=== PATIENT | male | born 1955 | race African-American/Black ===

== ENCOUNTER 2016-08-02 10:50 | Inpatient (IN) | payer OTHER ==
[2016-08-02 11:23] VITALS: BMI 29.2
--- NOTE | 2016-08-02 14:45 | HP ---
CIWA Score - CIWA Score Nausea/Vomitin-Mild Nausea/No Vomiting Muscle Tremors: 4-Moderate,w/Arms Extend Anxiety: 3 Agitation: 4-Moderately Restless Paroxysmal Sweats: 3 Orientation: 0-Oriented Tacttile Disturbances: 0-None Auditory Disturbances: 0-None Visual Disturbances: 0-None Headache: 0-None Present CIWA-Ar Total Score: 15 Admission ROS S - HPI Chief Complaint: I am here to detox. Allergies/Adverse Reactions: Allergies Allergy/AdvReac Type Severity Reaction Status Date / Time peanut Allergy Severe Rash Verified 08/02/16 12:21 No Known Drug Allergies Allergy Verified 08/02/16 12:21 BEETS Allergy Severe Rash Uncoded 08/02/16 12:21 PEANUT BUTTER Allergy Uncoded 08/02/16 12:21 History of Present Illness: pt is a 61yr old male with a history of alcohol and cocaine dependence seeking detox for treatment. Exam Limitations: No Limitations - Ebola screening Have you traveled outside of the country in the last 21 days: No Have you had contact with anyone from an Ebola affected area: No Have you been sick,other than usual withdrawal symptoms: No Do you have a fever: No - Review of Systems Constitutional: Chills, Diaphoresis, Loss of Appetite, Unintentional Wgt. Loss EENT: reports: No Symptoms Reported Respiratory: reports: No Symptoms reported Cardiac: reports: No Symptoms Reported GI: reports: Poor Appetite, Poor Fluid Intake : reports: No Symptoms Reported Musculoskeletal: reports: Joint Pain (b/l knee) Integumentary: reports: Flushing, Sweating Neuro: reports: Tingling, Tremors Endocrine: reports: Excessive Sweating, Flushing, Intolerance to Cold, Intolerance to Heat Hematology: reports: No Symptoms Reported Psychiatric: reports: Judgement Intact, Mood/Affect Appropiate, Orientated x3, Agitated, Anxious, other Other Systems: Reviewed and Negative Patient History - Patient Medical History Hx Anemia: No Hx Asthma: No Hx Chronic Obstructive Pulmonary Disease (COPD): No Hx Cancer: No Hx Cardiac Disorders: No Hx Congestive Heart Failure: No Hx Hypertension: Yes (on meds.) Hx Hypercholesterolemia: No Hx Pacemaker: No HX Cerebrovascular Accident: No Hx Seizures: No Hx Dementia: No Hx Diabetes: No Hx Gastrointestinal Disorders: No Hx Liver Disease: No Hx Genitourinary Disorders: No Hx Sexually Transmitted Disorders: No Hx Renal Disease (ESRD): No Hx Thyroid Disease: No Hx Human Immunodeficiency Virus (HIV): No (denies) Hx Hepatitis C: No (denies) Hx Depression: Yes Hx Suicide Attempt: Yes (tried to walk in traffic 10 yrs ago; denies any S/H ideation) Hx Bipolar Disorder: No Hx Schizophrenia: No - Patient Surgical History Past Surgical History: Yes Hx Neurologic Surgery: No Hx Cataract Extraction: No Hx Cardiac Surgery: No Hx Lung Surgery: No Hx Breast Surgery: No Hx Breast Biopsy: No Hx Abdominal Surgery: No Hx Appendectomy: No Hx Cholecystectomy: No Hx Genitourinary Surgery: No Hx Section: No Hx Orthopedic Surgery: Yes (RIGHT ACHILLES TENDON REPAIR IN 1998) Anesthesia Reaction: No - PPD History Previous Implant?: Yes Documented Results: Negative w/proof Implanted On Prior [facility] Admission?: Yes Date: 10/01/15 Results: 0 mm PPD to be Administered?: No - Reproductive History Patient is a Female of Child Bearing Age (11 -55 yrs old): No - Smoking Cessation Smoking history: Never smoked Have you smoked in the past 12 months: No Hx Chewing Tobacco Use: No Initiated information on smoking cessation: No - Substance & Tx. History Hx Alcohol Use: Yes Hx Substance Use: Yes Substance Use Type: Alcohol, Cocaine Hx Substance Use Treatment: Yes - Substances Abused Alcohol Route: Oral Frequency: Daily Amount used: 1 liter rayo Age of first use: 18 Date of Last Use: 08/02/16 Cocaine Route: Smoking Frequency: Daily Amount used: 1 gram Age of first use: 30 Date of Last Use: 08/01/16 Family Disease History - Family Disease History Family Disease History: Other: Brother (DSA,COCAINE,) Admission Physical Exam BHS - Vital Signs Vital Signs: Vital Signs - 24 hr 08/02/16 11:21 Temperature 97.2 F L Pulse Rate 80 Respiratory 18 Rate Blood Pressure 163/80 - Physical General Appearance: Yes: Appropriately Dressed, Moderate Distress, Tremorous, Irritable, Sweating, Anxious HEENTM: Yes: Normal Voice Respiratory: Yes: Lungs Clear, Normal Breath Sounds, No Respiratory Distress Breast: Yes: Within Normal Limits Cardiology: Yes: Regular Rhythm, Regular Rate, S1, S2 Abdominal: Yes: Normal Bowel Sounds, Non Tender, Soft Genitourinary: Yes: Within Normal Limits Back: Yes: Normal Inspection Musculoskeletal: Yes: full range of Motion Extremities: Yes: Normal Capillary Refill, Normal Inspection, Non-Tender, Tremors 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 NML intact, Fully Oriented, Alert, Normal Mood/ Affect, Normal Response Integumentary: Yes: Normal Color Lymphatic: Yes: Within Normal Limits - Diagnostic (1) Alcohol dependence with uncomplicated withdrawal Current Visit: Yes Status: Chronic (2) Cocaine dependence Current Visit: Yes Status: Chronic Qualifiers: Substance use status: uncomplicated Qualified Code(s): F14.20 - Cocaine dependence, uncomplicated (3) Essential hypertension Current Visit: Yes Status: Chronic Cleared for Admission [facility] - Detox or Rehab [facility] Level of Care: Medically Managed Detox Regimen/Protocol: Librium [facility] Breath Alcohol Content Breath Alcohol Content: 0.037 Urine Drug Screen - Results Drug Screen Negative: No Urine Drug Screen Results: MEGHAN-Cocaine
[2016-08-02] MEDS ORDERED: diphenhydrAMINE HCL 50 MG CAPSULE PO PRN (14:46)
[2016-08-02] MEDS ORDERED: MAGNESIUM CITRATE 300 ML BOTTLE PO PRN (14:46)
[2016-08-02] MEDS ORDERED: chlordiazePOXIDE HCL 25 MG CAPSULE PO PRN (14:46)
[2016-08-02] MEDS ORDERED: hydrOXYzine PAMOATE 50 MG CAPSULE (FP) PO PRN (14:46)
[2016-08-02] MEDS ORDERED: MAG HYDROX/AL HYDROX/SIMETH 30 ML UNIT-DOSE CUP PO PRN (14:46)
[2016-08-02] MEDS ORDERED: MENTHOL/PHENOL 1 EACH UD MM PRN (14:46)
[2016-08-02] MEDS ORDERED: ACETAMINOPHEN 325 MG TABLET (FP) PO PRN (14:46)
[2016-08-02] MEDS ORDERED: IBUPROFEN 400 MG TABLET (FP) PO PRN (14:46)
[2016-08-02] MEDS ORDERED: LOPERAMIDE HCL 2 MG CAPSULE PO PRN (14:46)
[2016-08-02] MEDS ORDERED: MAGNESIUM HYDROX 2400MG/30ML ORAL SUSPENSION 30 ML CUP PO PRN (14:46)
[2016-08-02] MEDS ORDERED: P-EPHED 60MG/TRIPROLIDI 2.5MG TABLET PO PRN (14:46)
[2016-08-02] MEDS ORDERED: guaiFENesin/D-METHORPHAN HB 10 ML UNIT-DOSE CUPS PO PRN (14:46)
[2016-08-02] MEDS ORDERED: chlordiazePOXIDE HCL 25 MG CAPSULE PO ONE (14:58)
[2016-08-02] MEDS: chlordiazePOXIDE HCL 25 MG CAPSULE PO SCH ×2 (20:10→22:26)
[2016-08-02 20:35] LABS: URINE APPEARANCE CLEAR; URINE BILIRUBIN NEGATIVE (NEGATIVE); URINE BLOOD NEGATIVE (NEGATIVE); URINE COLOR YELLOW; URINE GLUCOSE (UA) NEGATIVE (NEGATIVE); URINE KETONE NEGATIVE (NEGATIVE); URINE LEUK ESTERASE NEGATIVE (NEGATIVE); URINE NITRITE NEGATIVE (NEGATIVE); URINE PROTEIN NEGATIVE (NEGATIVE); URINE UROBILINOGEN 2.0 E.U/dl E.U./dl (0.2-1.0)
[2016-08-02] MEDS: THIAMINE HCL 100 MG TABLET (FP) PO SCH (22:26)
[2016-08-03] MEDS: chlordiazePOXIDE HCL 25 MG CAPSULE PO SCH ×4 (06:17→22:11)
--- NOTE | 2016-08-03 08:04 | CONSULT ---
[facility] Psychiatric Consult - Data Date of interview: 08/03/16 Admission source: [facility] Identifying data: This is 61 years old male with history of Depression, history of psychiatric hospitalization,k iontyoxicated with: Alcohol and Cocaine Substance Abuse History: - Smoking Cessation. Smoking history: Never smoked. Have you smoked in the past 12 months: No. Hx Chewing Tobacco Use: No. Initiated information on smoking cessation: No. - Substance & Tx. History. Hx Alcohol Use: Yes. Hx Substance Use: Yes. Substance Use Type: Alcohol, Cocaine. Hx Substance Use Treatment: Yes. - Substances Abused. Alcohol. Route: Oral. Frequency: Daily. Amount used: 1 liter rayo. Age of first use : 18. Date of Last Use: 08/02/16. Cocaine. Route: Smoking. Frequency: Daily. Amount used: 1 gram. Age of first use: 30. Date of Last Use: 08/01/16 Medical History: HTN Psychiatric History: Patient reports history of depression with most recent psychoiatric admsision on about 5-10 years ago, reports taking prior to admission: Celexa 20mg poqd Physical/Sexual Abuse/Trauma History: Denies Additional Comment: Celexa 20mg poqd Mental Status Exam - Mental Status Exam Alert and Oriented to: Person Cognitive Function: Fair Patient Appearance: Well Groomed Mood: Apprehensive Affect: Appropriate Patient Behavior: Cooperative Speech Pattern: Appropriate Voice Loudness: Normal Thought Process: Goal Oriented Thought Disorder: Being Controlled Hallucinations: Denies Suicidal Ideation: Denies Homicidal Ideation: Denies Insight/Judgement: Fair Sleep: Difficulty falling asleep Appetite: Weight gain Muscle strength/Tone: Normal Gait/Station: Shuffling Additional Comments: Celexa 20mg poqd Psychiatric Findings - Problem List ([place] 1, 2,3) (1) Alcohol dependence with uncomplicated withdrawal Current Visit: Yes Status: Chronic (2) Cocaine dependence Current Visit: Yes Status: Chronic Qualifiers: Substance use status: uncomplicated Qualified Code(s): F14.20 - Cocaine dependence, uncomplicated (3) Drug-induced mood disorder Current Visit: Yes Status: Acute - Initial Treatment Plan Initial Treatment Plan: Celexa 20mg poqd
[2016-08-03 10:07] LABS: MCH 29.4 pg (25.7-33.7); MCHC 32.9 g/dl (32.0-35.9); MEAN CELL VOLUME 89.4 fl (80-96); PLATELET COUNT 171 K/MM3 (134-434); RDW 14.1 % (11.9-15.9); WHITE BLOOD COUNT 5.8 K/mm3 (4.0-10.0)
[2016-08-03] MEDS: PRENATAL VITAMINS W/ FOLIC ACID TABLET (FP) PO SCH (10:21)
[2016-08-03] MEDS: CITALOPRAM HYDROBROMIDE 20 MG TABLET (FP) PO SCH (10:22)
[2016-08-03 10:42] LABS: ALBUMIN 3.8 g/dl (3.4-5.0); ALK PHOS 65 U/L (45-117); ANION GAP 14 (8-16); BILIRUBIN,TOTAL 0.6 mg/dL (0.2-1.0); CALCIUM 9.7 mg/dL (8.5-10.1); CO2 23 mmol/L (21-32); CREATININE 1.1 mg/dL (0.7-1.3); GLUCOSE,RANDOM 144 mg/dL (74-106); SGOT/AST 13 U/L (15-37); SGPT/ALT 19 U/L (12-78); TOT PROT 6.9 g/dl (6.4-8.2)
--- NOTE | 2016-08-03 11:05 | PN ---
[facility] CIWA - CIWA Score Nausea/Vomitin-No Nausea/No Vomiting Muscle Tremors: 4-Moderate,w/Arms Extend Anxiety: 3 Agitation: 1-Slight > Activity Paroxysmal Sweats: 3 Orientation: 0-Oriented Tacttile Disturbances: 2-Mild Itch/Numbness/Burn Auditory Disturbances: 0-None Visual Disturbances: 1-Very Mild Sensitivity Headache: 3-Moderate CIWA-Ar Total Score: 17 BHS Progress Note (SOAP) Subjective: Sweating, Tremors, Headache, Body Aches. Objective: Pt. A & O X, Observed Ambulating on unit. 08/03/16 11:03 Vital Signs Temperature 97.7 F 08/03/16 09:35 Pulse Rate 78 08/03/16 09:35 Respiratory Rate 18 08/03/16 09:35 Blood Pressure 132/80 08/03/16 09:35 O2 Sat by Pulse Oximetry (%) Laboratory Last Values WBC 5.8 K/mm3 (4.0-10.0) 08/03/16 06:00 RBC 4.61 M/mm3 (4.00-5.60) 08/03/16 06:00 Hgb 13.5 GM/dL (11.7-16.9) 08/03/16 06:00 Hct 41.2 % (35.4-49) 08/03/16 06:00 MCV 89.4 fl (80-96) 08/03/16 06:00 MCHC 32.9 g/dl (32.0-35.9) 08/03/16 06:00 RDW 14.1 % (11.9-15.9) 08/03/16 06:00 Plt Count 171 K/MM3 (134-434) 08/03/16 06:00 MPV 9.0 fl (7.5-11.1) 08/03/16 06:00 Sodium 143 mmol/L (136-145) 08/03/16 06:00 Potassium 3.9 mmol/L (3.5-5.1) 08/03/16 06:00 Chloride 106 mmol/L (98-107) 08/03/16 06:00 Carbon Dioxide 23 mmol/L (21-32) 08/03/16 06:00 Anion Gap 14 (8-16) 08/03/16 06:00 BUN 17 mg/dL (7-18) D 08/03/16 06:00 Creatinine 1.1 mg/dL (0.7-1.3) D 08/03/16 06:00 Creat Clearance w eGFR > 60 (>60) 08/03/16 06:00 Random Glucose 144 mg/dL (74-106) H D 08/03/16 06:00 Calcium 9.7 mg/dL (8.5-10.1) 08/03/16 06:00 Total Bilirubin 0.6 mg/dL (0.2-1.0) D 08/03/16 06:00 AST 13 U/L (15-37) L 08/03/16 06:00 ALT 19 U/L (12-78) 08/03/16 06:00 Alkaline Phosphatase 65 U/L (45-117) D 08/03/16 06:00 Total Protein 6.9 g/dl (6.4-8.2) 08/03/16 06:00 Albumin 3.8 g/dl (3.4-5.0) 08/03/16 06:00 Urine Color Yellow 08/02/16 14:00 Urine Appearance Clear 08/02/16 14:00 Urine pH 5.0 (5.0-8.0) 08/02/16 14:00 Ur Specific [place] 1.032 (1.001-1.035) 08/02/16 14:00 Urine Protein Negative (NEGATIVE) 08/02/16 14:00 Urine Glucose (UA) Negative (NEGATIVE) 08/02/16 14:00 Urine Ketones Negative (NEGATIVE) 08/02/16 14:00 Urine Blood Negative (NEGATIVE) 08/02/16 14:00 Urine Nitrite Negative (NEGATIVE) 08/02/16 14:00 Urine Bilirubin Negative (NEGATIVE) 08/02/16 14:00 Urine Urobilinogen 2.0 e.u/dl E.U./dl (0.2-1.0) 08/02/16 14:00 Ur Leukocyte Esterase Negative (NEGATIVE) 08/02/16 14:00 LABS NOTED. Assessment: 08/03/16 11:05 WITHDRAWAL SYMPTOMS. Plan: CONTINUE DETOX. FASTING BGM TOMORROW [facility] FOR ELEVATED ADMISSION GLUCOSE LEVEL.
[2016-08-03] MEDS: TOLNAFTATE 1% CREAM 15 GM TUBE TP SCH ×2 (15:34→22:11)
--- NOTE | 2016-08-03 17:38 | EKG ---
Test Reason : Blood Pressure : / mmHG Vent. Rate : 073 BPM Atrial Rate : 073 BPM P-R Int : 140 ms QRS Dur : 092 ms QT Int : 402 ms P-R-T Axes : 052 036 061 degrees QTc Int : 442 ms NORMAL SINUS RHYTHM NORMAL ECG NO PREVIOUS ECGS AVAILABLE Confirmed by RADHA GUERRA, ANDREA ([id number]) on 08/03/2016 5:38:12 PM Referred By: Marcin Weathers Confirmed By:ANDREA GARCIA MD
[2016-08-03] MEDS: THIAMINE HCL 100 MG TABLET (FP) PO SCH (22:11)
[2016-08-04] MEDS: chlordiazePOXIDE HCL 25 MG CAPSULE PO SCH ×2 (05:38→10:34)
--- NOTE | 2016-08-04 09:41 | PN ---
S CIWA - CIWA Score Nausea/Vomitin Muscle Tremors: 3 Anxiety: 2 Agitation: 2 Paroxysmal Sweats: 2 Orientation: 0-Oriented Tacttile Disturbances: 1-Very Mild Itch/Numbness Auditory Disturbances: 1-Very Mild Visual Disturbances: 1-Very Mild Sensitivity Headache: 2-Mild CIWA-Ar Total Score: 17 BHS Progress Note (SOAP) Objective: 08/04/16 09:41 Laboratory Tests 08/02/16 08/03/16 08/03/16 14:00 06:00 06:00 WBC 5.8 RBC 4.61 Hgb 13.5 Hct 41.2 MCV 89.4 MCHC 32.9 RDW 14.1 Plt Count 171 MPV 9.0 Sodium 143 Potassium 3.9 Chloride 106 Carbon Dioxide 23 Anion Gap 14 BUN 17 D Creatinine 1.1 D Creat Clearance w eGFR > 60 Random Glucose 144 H D Calcium 9.7 Total Bilirubin 0.6 D AST 13 L ALT 19 Alkaline Phosphatase 65 D Total Protein 6.9 Albumin 3.8 Urine Color Yellow Urine Appearance Clear Urine pH 5.0 Ur Specific [place] 1.032 Urine Protein Negative Urine Glucose (UA) Negative Urine Ketones Negative Urine Blood Negative Urine Nitrite Negative Urine Bilirubin Negative Urine Urobilinogen 2.0 e.u/dl Ur Leukocyte Esterase Negative RPR Titer 08/03/16 06:00 WBC RBC Hgb Hct MCV MCHC RDW Plt Count MPV Sodium Potassium Chloride Carbon Dioxide Anion Gap BUN Creatinine Creat Clearance w eGFR Random Glucose Calcium Total Bilirubin AST ALT Alkaline Phosphatase Total Protein Albumin Urine Color Urine Appearance Urine pH Ur Specific [place] Urine Protein Urine Glucose (UA) Urine Ketones Urine Blood Urine Nitrite Urine Bilirubin Urine Urobilinogen Ur Leukocyte Esterase RPR Titer Nonreactive Vital Signs - 24 hr 08/03/16 08/03/16 08/03/16 14:57 20:22 21:56 Temperature 98.1 F 97.9 F Pulse Rate 73 62 84 Respiratory 18 16 20 Rate Blood Pressure 135/88 137/83 120/82 08/04/16 08/04/16 08/04/16 00:30 03:30 06:00 Temperature 96.8 F L Pulse Rate 65 Respiratory 18 18 18 Rate Blood Pressure 132/70 Assessment: 08/04/16 09:41 ongoing withdrawal Plan: continue detox protocol
[2016-08-04] MEDS: PRENATAL VITAMINS W/ FOLIC ACID TABLET (FP) PO SCH (10:34)
[2016-08-04] MEDS: CITALOPRAM HYDROBROMIDE 20 MG TABLET (FP) PO SCH (10:34)
[2016-08-04] MEDS: TOLNAFTATE 1% CREAM 15 GM TUBE TP SCH ×2 (10:35→22:13)
[2016-08-04] MEDS: chlordiazePOXIDE 5 MG CAPSULE PO SCH ×2 (17:38→22:14)
[2016-08-04] MEDS: THIAMINE HCL 100 MG TABLET (FP) PO SCH (22:13)
[2016-08-05] MEDS: chlordiazePOXIDE 5 MG CAPSULE PO SCH ×2 (07:52→11:22)
[2016-08-05] MEDS: TOLNAFTATE 1% CREAM 15 GM TUBE TP SCH (11:22)
[2016-08-05] MEDS: PRENATAL VITAMINS W/ FOLIC ACID TABLET (FP) PO SCH (11:22)
[2016-08-05] MEDS: CITALOPRAM HYDROBROMIDE 20 MG TABLET (FP) PO SCH (11:22)
--- NOTE | 2016-08-05 12:59 | PN ---
BHS Progress Note (SOAP) Subjective: ALERT,IRRITABLE,ANXIOUS,INTERRUPTED SLEEP,PAIN IN THE BODY Objective: 08/05/16 12:58 Vital Signs Temperature 97.7 F 08/05/16 10:04 Pulse Rate 68 08/05/16 10:04 Respiratory Rate 18 08/05/16 10:04 Blood Pressure 118/85 08/05/16 10:04 O2 Sat by Pulse Oximetry (%) Assessment: 08/05/16 12:59 WITHDRAWAL SYMPTOM Plan: CONTINUE DETOX
[2016-08-05] MEDS: chlordiazePOXIDE HCL 10 MG CAPSULE PO SCH ×2 (18:25→22:08)
[2016-08-05] MEDS: THIAMINE HCL 100 MG TABLET (FP) PO SCH (22:08)
[2016-08-06] MEDS: chlordiazePOXIDE HCL 10 MG CAPSULE PO SCH ×2 (06:33→10:12)
[2016-08-06] MEDS: CITALOPRAM HYDROBROMIDE 20 MG TABLET (FP) PO SCH (10:12)
[2016-08-06] MEDS: PRENATAL VITAMINS W/ FOLIC ACID TABLET (FP) PO SCH (10:12)
[2016-08-06] MEDS: TOLNAFTATE 1% CREAM 15 GM TUBE TP SCH (10:15)
--- NOTE | 2016-08-06 11:53 | PN ---
S Progress Note (SOAP) Subjective: ALERT,IRRITABLE,INTERRUPTED SLEEP Objective: 08/06/16 11:52 Vital Signs Temperature 98.1 F 08/06/16 11:01 Pulse Rate 73 08/06/16 11:01 Respiratory Rate 16 08/06/16 11:01 Blood Pressure 140/85 08/06/16 11:01 O2 Sat by Pulse Oximetry (%) Assessment: 08/06/16 11:52 WITHDRAWAL SYMPTOM Plan: CONTINUE DETOX,DISCHARGE IN AM
[2016-08-06] MEDS: THIAMINE HCL 100 MG TABLET (FP) PO SCH (22:25)
--- NOTE | 2016-08-07 08:47 | DS ---
[facility] Detox Discharge Summary Admission Date: 08/02/16 Discharge Date: 08/07/16 - History Present History: Alcohol Dependence, Cocaine Dependence - Physical Exam Results Vital Signs: Vital Signs Temperature 97.3 F L 08/07/16 06:00 Pulse Rate 66 08/07/16 06:00 Respiratory Rate 20 08/07/16 06:00 Blood Pressure 116/75 08/07/16 06:00 O2 Sat by Pulse Oximetry (%) - Treatment Hospital Course: Detox Protocol Followed, Detoxed Safely, Responded well, Discharged Condition Good, Rehab Referral Accepted - Medication Discharge Medications: Ambulatory Orders Lisinopril [Prinivil -] 40 mg PO DAILY #30 tablet 04/04/16 Citalopram Hydrobromide [Celexa -] 20 mg PO DAILY 08/02/16 Citalopram Hydrobromide [Celexa -] 20 mg PO DAILY #30 tablet 08/03/16 - Diagnosis (1) Alcohol dependence with uncomplicated withdrawal Current Visit: Yes Status: Chronic (2) Cocaine dependence Current Visit: Yes Status: Chronic Qualifiers: Substance use status: uncomplicated Qualified Code(s): F14.20 - Cocaine dependence, uncomplicated (3) Essential hypertension Current Visit: Yes Status: Chronic - AMA Did Patient Leave Against Medical Advice: No
[2016-08-07] MEDS: CITALOPRAM HYDROBROMIDE 20 MG TABLET (FP) PO SCH (10:03)
[2016-08-07] MEDS: PRENATAL VITAMINS W/ FOLIC ACID TABLET (FP) PO SCH (10:03)
[2016-08-07] MEDS: TOLNAFTATE 1% CREAM 15 GM TUBE TP SCH (10:03)
[2016-08-07 10:17] VITALS: BP 134/92; PULSE 67; TEMP 96.3
== END 2016-08-07 10:19 | disposition home or self-care (01) | DRG 751 ==
LOC: YASAS 10:50 → Y6N 13:18
PROVIDERS: ADMIT Internal Medicine Addiction Medicine; ATTEND Internal Medicine Addiction Medicine
PROC: HZ2ZZZZ Detoxification Services for Substance Abuse Treatment (ICD-10-PCS; principal; 2016-08-07)
DX: F10.230 Alcohol dependence with withdrawal, uncomplicated (principal); F14.20 Cocaine dependence, uncomplicated; F19.24 Other psychoactive substance dependence with psychoactive substance-induced mood disorder; I10 Essential (primary) hypertension
CPT/HCPCS: 36415; 80053; 81003; 85027; 86593; 93005; 93010

== ENCOUNTER 2020-07-25 16:47 | Inpatient (IN) | payer OTHER ==
[2020-07-25] MEDS ORDERED: BISMUTH SUBSALICYLATE 524 MG/30 ML UD PO PRN (17:38)
[2020-07-25] MEDS ORDERED: MAGNESIUM HYDROX 2400MG/30ML ORAL SUSPENSION 30 ML CUP PO PRN (17:38)
[2020-07-25] MEDS ORDERED: MENTHOL/PHENOL 1 EACH UD MM PRN (17:38)
[2020-07-25] MEDS ORDERED: METHOCARBAMOL 500 MG TABLET PO PRN (17:38)
[2020-07-25] MEDS ORDERED: ONDANSETRON *ODT* 4 MG TABLET SL PRN (17:38)
[2020-07-25] MEDS ORDERED: chlordiazePOXIDE HCL 25 MG CAPSULE PO PRN (17:38)
[2020-07-25] MEDS ORDERED: IBUPROFEN 400 MG TABLET (FP) PO PRN (17:38)
[2020-07-25] MEDS ORDERED: MAG HYDROX/AL HYDROX/SIMETH 30 ML UNIT-DOSE CUP PO PRN (17:38)
[2020-07-25] MEDS ORDERED: ACETAMINOPHEN 325 MG TABLET (FP) PO PRN ×2 (17:38)
[2020-07-25] MEDS ORDERED: MAGNESIUM CITRATE 300 ML BOTTLE PO PRN (17:38)
[2020-07-25 18:07] VITALS: BMI 33.0
[2020-07-25] MEDS: hydrOXYzine PAMOATE 25 MG CAPSULE (FP) PO SCH ×2 (18:53→22:17)
[2020-07-25] MEDS: MELATONIN 5 MG TABLETS PO SCH (22:17)
[2020-07-25] MEDS: THIAMINE HCL 100 MG TABLET (FP) PO SCH (22:17)
[2020-07-25] MEDS: chlordiazePOXIDE HCL 25 MG CAPSULE PO SCH (22:18)
[2020-07-26] MEDS: hydrOXYzine PAMOATE 25 MG CAPSULE (FP) PO SCH ×5 (06:32→22:08)
[2020-07-26] MEDS: chlordiazePOXIDE HCL 25 MG CAPSULE PO SCH ×4 (06:32→22:08)
[2020-07-26] MEDS ORDERED: PATIENT'S OWN MEDICATION (NON-FORMULARY) (Lisinopril [Prinivil -] 40 MG Tablet) PO SCH (10:00)
[2020-07-26] MEDS: PRENATAL VITAMINS W/ FOLIC ACID TABLET (FP) PO SCH (10:13)
[2020-07-26] MEDS: LISINOPRIL 20 MG TABLET PO SCH (10:13)
[2020-07-26] MEDS: CITALOPRAM HYDROBROMIDE 20 MG TABLET PO SCH (10:48)
[2020-07-26 12:10] LABS: POTASSIUM 4.3 mmol/L (3.5-5.1)
[2020-07-26 12:12] LABS: CALCIUM 8.4 mg/dL (8.5-10.1)
[2020-07-26 12:13] LABS: ALBUMIN 3.2 g/dl (3.4-5.0); BLOOD UREA NITROGEN 18.3 mg/dL (7-18)
[2020-07-26 12:16] LABS: CREATININE 0.9 mg/dL (0.55-1.3)
[2020-07-26 12:17] LABS: BILIRUBIN,TOTAL 0.2 mg/dL (0.2-1)
[2020-07-26 12:18] LABS: TOT PROT 6.3 g/dl (6.4-8.2)
[2020-07-26 12:31] LABS: HEMATOCRIT 40.9 % (35.4-49); HEMOGLOBIN 13.3 GM/dL (11.7-16.9); MCH 29.2 pg (25.7-33.7); MCHC 32.6 g/dl (32.0-35.9); MEAN CELL VOLUME 89.7 fl (80-96); MEAN PLT VOLUME 9.8 fl (7.5-11.1); PLATELET COUNT 149 K/MM3 (134-434); RBC 4.56 M/mm3 (4.00-5.60); RDW 14.3 % (11.9-15.9); WHITE BLOOD COUNT 5.2 K/mm3 (4.0-10.0)
[2020-07-26] MEDS: MELATONIN 5 MG TABLETS PO SCH (22:08)
[2020-07-26] MEDS: THIAMINE HCL 100 MG TABLET (FP) PO SCH (22:08)
[2020-07-27] MEDS: chlordiazePOXIDE HCL 25 MG CAPSULE PO SCH ×4 (05:52→22:12)
[2020-07-27] MEDS: hydrOXYzine PAMOATE 25 MG CAPSULE (FP) PO SCH ×3 (05:54→15:15)
[2020-07-27] MEDS: PRENATAL VITAMINS W/ FOLIC ACID TABLET (FP) PO SCH (10:19)
[2020-07-27] MEDS: CITALOPRAM HYDROBROMIDE 20 MG TABLET PO SCH (10:19)
[2020-07-27] MEDS: LISINOPRIL 20 MG TABLET PO SCH (10:21)
[2020-07-27 11:37] LABS: POTASSIUM 4.9 mmol/L (3.5-5.1)
[2020-07-27 11:40] LABS: CALCIUM 9.2 mg/dL (8.5-10.1)
[2020-07-27 11:41] LABS: BLOOD UREA NITROGEN 19.2 mg/dL (7-18)
[2020-07-27] MEDS ORDERED: FLU VACCINE (FLULAVAL) PF 60 MCG/0.5 ML SYRINGE 2020-2021 IM ONE (12:00)
[2020-07-27] MEDS: TOLNAFTATE 1% CREAM 15 GM TUBE TP SCH ×2 (15:16→22:13)
[2020-07-27] MEDS ORDERED: MASKS NR ONE (15:17)
[2020-07-27] MEDS: MELATONIN 5 MG TABLETS PO SCH (22:11)
[2020-07-27] MEDS: THIAMINE HCL 100 MG TABLET (FP) PO SCH (22:13)
[2020-07-28] MEDS ORDERED: chlordiazePOXIDE HCL 10 MG CAPSULE PO PRN
[2020-07-28] MEDS: chlordiazePOXIDE HCL 10 MG CAPSULE PO SCH ×4 (05:58→22:09)
[2020-07-28] MEDS: LISINOPRIL 20 MG TABLET PO SCH (10:06)
[2020-07-28] MEDS: TOLNAFTATE 1% CREAM 15 GM TUBE TP SCH ×2 (10:07→22:07)
[2020-07-28] MEDS: PRENATAL VITAMINS W/ FOLIC ACID TABLET (FP) PO SCH (10:07)
[2020-07-28] MEDS: CITALOPRAM HYDROBROMIDE 20 MG TABLET PO SCH (11:22)
[2020-07-28] MEDS: HYDROCORTISONE 0.5% TOPICAL CREAM 30 GM TUBE TP SCH ×2 (11:22→22:07)
[2020-07-28] MEDS ORDERED: PNEUMOCOCCAL 23 VACCINE 0.5 ML VIAL IM ONE (12:00)
[2020-07-28] MEDS: MELATONIN 5 MG TABLETS PO SCH (22:07)
[2020-07-28] MEDS: THIAMINE HCL 100 MG TABLET (FP) PO SCH (22:07)
[2020-07-29] MEDS: chlordiazePOXIDE HCL 10 MG CAPSULE PO SCH ×2 (05:41→18:27)
[2020-07-29] MEDS: CITALOPRAM HYDROBROMIDE 20 MG TABLET PO SCH (10:30)
[2020-07-29] MEDS: PRENATAL VITAMINS W/ FOLIC ACID TABLET (FP) PO SCH (10:30)
[2020-07-29] MEDS: TOLNAFTATE 1% CREAM 15 GM TUBE TP SCH ×2 (10:30→22:58)
[2020-07-29] MEDS: HYDROCORTISONE 0.5% TOPICAL CREAM 30 GM TUBE TP SCH ×2 (10:32→22:57)
[2020-07-29] MEDS: LISINOPRIL 20 MG TABLET PO SCH (10:32)
[2020-07-29] MEDS: MELATONIN 5 MG TABLETS PO SCH (22:57)
[2020-07-29] MEDS: THIAMINE HCL 100 MG TABLET (FP) PO SCH (22:58)
[2020-07-30] MEDS ORDERED: chlordiazePOXIDE HCL 10 MG CAPSULE PO ONE (05:00)
[2020-07-30 09:13] VITALS: BP 150/85; PULSE 80; TEMP 97.7
== END 2020-07-30 08:58 | disposition home or self-care (01) | DRG 897 ==
LOC: YASAS 16:47 → Y3N 18:07
PROVIDERS: ADMIT Allergy & Immunology; ATTEND Allergy & Immunology
PROC: HZ2ZZZZ Detoxification Services for Substance Abuse Treatment (ICD-10-PCS; principal; 2020-07-25)
DX: F10.230 Alcohol dependence with withdrawal, uncomplicated (principal); F14.20 Cocaine dependence, uncomplicated; F33.2 Major depressive disorder, recurrent severe without psychotic features; F19.282 Other psychoactive substance dependence with psychoactive substance-induced sleep disorder; F19.24 Other psychoactive substance dependence with psychoactive substance-induced mood disorder; I10 Essential (primary) hypertension; B35.3 Tinea pedis; M54.5 Low back pain; G89.29 Other chronic pain; R73.03 Prediabetes; R21 Rash and other nonspecific skin eruption; Z91.010 Allergy to peanuts; Z91.018 Allergy to other foods; Z86.59 Personal history of other mental and behavioral disorders
CPT/HCPCS: 36415; 80048; 80053; 82947; 82962; 83036; 85027; 86780; 90732; C9803; G0008; G0009; Q2036; U0003

== ENCOUNTER 2021-05-23 15:27 | Inpatient (IN) | payer OTHER ==
[2021-05-23 17:34] VITALS: BMI 33.0
[2021-05-23] MEDS ORDERED: MAG HYDROX/AL HYDROX/SIMETH 30 ML UNIT-DOSE CUP PO PRN (17:35)
[2021-05-23] MEDS ORDERED: BISMUTH SUBSALICYLATE 524 MG/30 ML PO PRN (17:35)
[2021-05-23] MEDS ORDERED: IBUPROFEN 400 MG TABLET (FP) PO PRN (17:35)
[2021-05-23] MEDS ORDERED: MENTHOL/PHENOL 1 EACH UD MM PRN (17:35)
[2021-05-23] MEDS ORDERED: ONDANSETRON *ODT* 4 MG TABLET SL PRN (17:35)
[2021-05-23] MEDS ORDERED: MAGNESIUM HYDROX 2400MG/30ML ORAL SUSPENSION 30 ML CUP PO PRN (17:35)
[2021-05-23] MEDS ORDERED: MAGNESIUM CITRATE 300 ML BOTTLE PO PRN (17:35)
[2021-05-23] MEDS ORDERED: ACETAMINOPHEN 325 MG TABLET (FP) PO PRN ×2 (17:35)
[2021-05-23] MEDS: METHOCARBAMOL 500 MG TABLET PO PRN (19:55)
[2021-05-23] MEDS: hydrOXYzine PAMOATE 25 MG CAPSULE (FP) PO SCH ×2 (19:55→23:16)
[2021-05-23] MEDS: INSULIN SLIDING SCALE (NOVOLOG) 1 VIAL SQ SCH (22:22)
[2021-05-23] MEDS: THIAMINE HCL 100 MG TABLET (FP) PO SCH (23:16)
[2021-05-23] MEDS: MELATONIN 5 MG TABLETS PO SCH (23:22)
[2021-05-24] MEDS: hydrOXYzine PAMOATE 25 MG CAPSULE (FP) PO SCH ×5 (06:00→22:16)
[2021-05-24] MEDS: INSULIN SLIDING SCALE (NOVOLOG) 1 VIAL SQ SCH ×4 (06:06→22:17)
[2021-05-24] MEDS ORDERED: diazePAM 5 MG TABLET PO PRN (10:07)
[2021-05-24] MEDS: PRENATAL VITAMINS W/ FOLIC ACID TABLET (FP) PO SCH (10:17)
[2021-05-24] MEDS: diazePAM 5 MG TABLET PO SCH ×3 (11:09→22:15)
[2021-05-24] MEDS: METHOCARBAMOL 500 MG TABLET PO PRN (11:10)
[2021-05-24 14:33] LABS: HEMATOCRIT 41.6 % (35.4-49); HEMOGLOBIN 13.6 GM/dL (11.7-16.9); MCH 29.4 pg (25.7-33.7); MCHC 32.7 g/dl (32.0-35.9); MEAN CELL VOLUME 89.9 fl (80-96); MEAN PLT VOLUME 9.4 fl (7.5-11.1); PLATELET COUNT 170 10^3/uL (134-434); RBC 4.63 M/mm3 (4.00-5.60); RDW 14.3 % (11.9-15.9)
[2021-05-24] MEDS ORDERED: metFORMIN HCL 500 MG TABLET (FP) PO ONE (16:30)
[2021-05-24 17:13] LABS: ALBUMIN 3.2 g/dl (3.4-5.0); BILIRUBIN,TOTAL 0.4 mg/dL (0.2-1); BLOOD UREA NITROGEN 15.8 mg/dL (7-18); CALCIUM 9.1 mg/dL (8.5-10.1); CREATININE 0.9 mg/dL (0.55-1.3); TOT PROT 6.6 g/dl (6.4-8.2)
[2021-05-24] MEDS: THIAMINE HCL 100 MG TABLET (FP) PO SCH (22:15)
[2021-05-24] MEDS: MELATONIN 5 MG TABLETS PO SCH (22:30)
[2021-05-25] MEDS ORDERED: diazePAM 5 MG TABLET PO PRN (00:01)
[2021-05-25] MEDS: hydrOXYzine PAMOATE 25 MG CAPSULE (FP) PO SCH ×5 (05:56→22:14)
[2021-05-25] MEDS: diazePAM 5 MG TABLET PO SCH ×4 (05:56→22:14)
[2021-05-25] MEDS: metFORMIN HCL 500 MG TABLET (FP) PO SCH (06:35)
[2021-05-25] MEDS: INSULIN SLIDING SCALE (NOVOLOG) 1 VIAL SQ SCH ×4 (06:35→23:15)
[2021-05-25] MEDS: PRENATAL VITAMINS W/ FOLIC ACID TABLET (FP) PO SCH (10:32)
[2021-05-25] MEDS: CITALOPRAM HYDROBROMIDE 20 MG TABLET PO SCH (14:53)
[2021-05-25] MEDS: THIAMINE HCL 100 MG TABLET (FP) PO SCH (22:14)
[2021-05-25] MEDS: MELATONIN 5 MG TABLETS PO SCH (22:15)
[2021-05-26] MEDS: hydrOXYzine PAMOATE 25 MG CAPSULE (FP) PO SCH ×5 (05:40→23:25)
[2021-05-26] MEDS: diazePAM 5 MG TABLET PO SCH ×3 (05:40→23:25)
[2021-05-26] MEDS: INSULIN SLIDING SCALE (NOVOLOG) 1 VIAL SQ SCH ×4 (06:23→23:25)
[2021-05-26] MEDS: metFORMIN HCL 500 MG TABLET (FP) PO SCH (07:22)
[2021-05-26] MEDS: PRENATAL VITAMINS W/ FOLIC ACID TABLET (FP) PO SCH (10:25)
[2021-05-26] MEDS: CITALOPRAM HYDROBROMIDE 20 MG TABLET PO SCH (10:25)
[2021-05-26] MEDS: METHOCARBAMOL 500 MG TABLET PO PRN (10:25)
[2021-05-26] MEDS: MELATONIN 5 MG TABLETS PO SCH (23:24)
[2021-05-26] MEDS: THIAMINE HCL 100 MG TABLET (FP) PO SCH (23:25)
[2021-05-27] MEDS: diazePAM 5 MG TABLET PO SCH ×2 (05:10→17:29)
[2021-05-27] MEDS: hydrOXYzine PAMOATE 25 MG CAPSULE (FP) PO SCH ×5 (05:10→22:25)
[2021-05-27] MEDS: INSULIN SLIDING SCALE (NOVOLOG) 1 VIAL SQ SCH ×4 (06:45→22:29)
[2021-05-27] MEDS: metFORMIN HCL 500 MG TABLET (FP) PO SCH (06:46)
[2021-05-27] MEDS: CITALOPRAM HYDROBROMIDE 20 MG TABLET PO SCH (10:33)
[2021-05-27] MEDS: PRENATAL VITAMINS W/ FOLIC ACID TABLET (FP) PO SCH (10:33)
[2021-05-27] MEDS: METHOCARBAMOL 500 MG TABLET PO PRN (10:33)
[2021-05-27] MEDS: THIAMINE HCL 100 MG TABLET (FP) PO SCH (22:25)
[2021-05-27] MEDS: MELATONIN 5 MG TABLETS PO SCH (22:25)
[2021-05-28] MEDS ORDERED: diazePAM 5 MG TABLET PO ONE (06:00)
[2021-05-28] MEDS: hydrOXYzine PAMOATE 25 MG CAPSULE (FP) PO SCH ×3 (06:02→13:46)
[2021-05-28] MEDS: metFORMIN HCL 500 MG TABLET (FP) PO SCH (06:03)
[2021-05-28] MEDS: INSULIN SLIDING SCALE (NOVOLOG) 1 VIAL SQ SCH ×2 (06:49→12:13)
[2021-05-28] MEDS: CITALOPRAM HYDROBROMIDE 20 MG TABLET PO SCH (10:21)
[2021-05-28] MEDS: METHOCARBAMOL 500 MG TABLET PO PRN (10:21)
[2021-05-28] MEDS: PRENATAL VITAMINS W/ FOLIC ACID TABLET (FP) PO SCH (10:21)
[2021-05-28 14:14] VITALS: BP 111/60; PULSE 84; TEMP 96.9
== END 2021-05-28 14:51 | disposition other institution (70) | DRG 897 ==
LOC: YASAS 15:27 → Y6N 18:59
PROVIDERS: ADMIT Allergy & Immunology; ATTEND Allergy & Immunology
PROC: HZ2ZZZZ Detoxification Services for Substance Abuse Treatment (ICD-10-PCS; principal; 2021-05-23)
DX: F10.230 Alcohol dependence with withdrawal, uncomplicated (principal); F14.20 Cocaine dependence, uncomplicated; F19.280 Other psychoactive substance dependence with psychoactive substance-induced anxiety disorder; F19.282 Other psychoactive substance dependence with psychoactive substance-induced sleep disorder; F33.1 Major depressive disorder, recurrent, moderate; I10 Essential (primary) hypertension; E11.9 Type 2 diabetes mellitus without complications; Z79.84 Long term (current) use of oral hypoglycemic drugs; B35.3 Tinea pedis; M54.50 Low back pain, unspecified; G89.29 Other chronic pain; Z91.010 Allergy to peanuts; Z91.018 Allergy to other foods
CPT/HCPCS: 36415; 80053; 82962; 83036; 85027; 86780; C9803; U0003; U0005

== ENCOUNTER 2021-05-28 14:32 | Inpatient (IN) | payer OTHER ==
[2021-05-28] MEDS ORDERED: MENTHOL/PHENOL 1 EACH UD MM PRN (16:56)
[2021-05-28] MEDS ORDERED: ACETAMINOPHEN 325 MG TABLET (FP) PO PRN (16:56)
[2021-05-28] MEDS ORDERED: MAGNESIUM HYDROX 2400MG/30ML ORAL SUSPENSION 30 ML CUP PO PRN (16:56)
[2021-05-28] MEDS ORDERED: MAG HYDROX/AL HYDROX/SIMETH 30 ML UNIT-DOSE CUP PO PRN (16:56)
[2021-05-28] MEDS ORDERED: IBUPROFEN 400 MG TABLET (FP) PO PRN (16:56)
[2021-05-28] MEDS ORDERED: MAGNESIUM CITRATE 300 ML BOTTLE PO PRN (16:56)
[2021-05-28] MEDS ORDERED: LOPERAMIDE HCL 2 MG CAPSULE PO PRN (16:56)
[2021-05-28] MEDS: MELATONIN 5 MG TABLETS PO SCH (21:13)
[2021-05-28] MEDS: THIAMINE HCL 100 MG TABLET (FP) PO SCH (21:13)
[2021-05-28] MEDS: INSULIN SLIDING SCALE (NOVOLOG) 1 VIAL SQ SCH (21:15)
[2021-05-29] MEDS: INSULIN SLIDING SCALE (NOVOLOG) 1 VIAL SQ SCH ×4 (06:49→21:13)
[2021-05-29] MEDS ORDERED: metFORMIN HCL 500 MG TABLET (FP) PO SCH ×2 (07:01→10:00)
[2021-05-29] MEDS ORDERED: LISINOPRIL 10 MG TABLET PO SCH (10:00)
[2021-05-29] MEDS ORDERED: PRENATAL VITAMINS W/ FOLIC ACID TABLET (FP) PO SCH (10:00)
[2021-05-29] MEDS: METHOCARBAMOL 500 MG TABLET PO PRN (21:12)
[2021-05-29] MEDS: THIAMINE HCL 100 MG TABLET (FP) PO SCH (21:12)
[2021-05-29] MEDS: MELATONIN 5 MG TABLETS PO SCH (21:12)
[2021-05-30] MEDS: METHOCARBAMOL 500 MG TABLET PO PRN (06:31)
[2021-05-30] MEDS: INSULIN SLIDING SCALE (NOVOLOG) 1 VIAL SQ SCH (06:32)
[2021-05-30 07:12] VITALS: BP 117/83; PULSE 85; TEMP 98.6
== END 2021-05-30 09:08 | disposition left against medical advice (07) | DRG 894 ==
LOC: YASAS 14:32 → Y3W 14:33
PROVIDERS: ADMIT Allergy & Immunology; ATTEND Allergy & Immunology
PROC: HZ42ZZZ Group Counseling for Substance Abuse Treatment, Cognitive-Behavioral (ICD-10-PCS; principal; 2021-05-28)
DX: F10.20 Alcohol dependence, uncomplicated (principal); F14.20 Cocaine dependence, uncomplicated; I10 Essential (primary) hypertension
CPT/HCPCS: 82962

== ENCOUNTER 2025-04-04 10:55 | Inpatient (IN) | payer OTHER ==
[2025-04-04 12:05] VITALS: BMI 34.2
[2025-04-04] MEDS ORDERED: ACETAMINOPHEN 325 MG TABLET (FP) PO PRN (14:53)
[2025-04-04] MEDS ORDERED: guaiFENesin 600 MG TABLET.ER (FP) PO PRN (14:53)
[2025-04-04] MEDS ORDERED: NALOXONE (NARCAN) HCL 4 MG/0.1 ML SPRAY NS PRN (14:53)
[2025-04-04] MEDS ORDERED: IBUPROFEN 400 MG TABLET (FP) PO PRN (14:53)
[2025-04-04] MEDS ORDERED: BENZOCAINE/MENTHOL (CHLORASEPTIC ) LOZENGE MM PRN (14:53)
[2025-04-04] MEDS ORDERED: BENZONATATE 200 MG CAPSULE PO PRN (14:53)
[2025-04-04] MEDS ORDERED: LOPERAMIDE HCL 2 MG CAPSULE PO PRN (14:53)
[2025-04-04] MEDS ORDERED: MAG HYDROX/AL HYDROX/SIMETH 30 ML UNIT-DOSE CUP PO PRN (14:53)
[2025-04-04] MEDS ORDERED: MAGNESIUM HYDROX 2400MG/30ML ORAL SUSPENSION 30 ML CUP PO PRN (14:53)
[2025-04-04] MEDS ORDERED: POLYETHYLENE GLYCOL (HEALTHYLAX) 3350 17 GM PACKET PO PRN (14:53)
[2025-04-04] MEDS ORDERED: METOPROLOL TARTRATE 25 MG TABLET (FP) ONE (16:31)
[2025-04-04] MEDS: METOPROLOL TARTRATE 25 MG TABLET (FP) PO ONE (16:33)
[2025-04-04] MEDS: TUBERCULIN PPD 5 TU/0.1ML SYRINGE (IN PATIENT USE ONLY) ID ONE (18:34)
[2025-04-04 21:45] LABS: URINE APPEARANCE CLEAR; URINE BILIRUBIN NEGATIVE (NEGATIVE); URINE COLOR YELLOW; URINE GLUCOSE (UA) >1000 mg/dl (NEGATIVE); URINE KETONE TRACE (NEGATIVE); URINE PROTEIN NEGATIVE (NEGATIVE); URINE UROBILINOGEN 0.2 mg/dL (0.2-1.0)
[2025-04-04 21:46] LABS: URINE LEUK ESTERASE NEGATIVE (NEGATIVE); URINE NITRITE NEGATIVE (NEGATIVE)
[2025-04-04] MEDS: SACUBITRIL/VALSARTAN 49 MG-51 MG TABLET PO SCH (22:25)
[2025-04-04] MEDS: THIAMINE 100 MG TABLET PO SCH (22:25)
[2025-04-04] MEDS: ATORVASTATIN CA 10 MG TABLET (FP) PO SCH (22:25)
[2025-04-04] MEDS: MELATONIN 5 MG TABLETS PO SCH (22:26)
[2025-04-05] MEDS: metFORMIN HCL 500 MG TABLET (FP) PO SCH (06:39)
[2025-04-05] MEDS: TAMSULOSIN HCL 0.4 MG CAP PO SCH (08:31)
[2025-04-05] MEDS: EMPAGLIFLOZIN (JARDIANCE) 25 MG TABLET PO SCH (09:21)
[2025-04-05] MEDS: PRENATAL VITAMINS W/ FOLIC ACID TABLET (FP) PO SCH (09:21)
[2025-04-05 10:46] LABS: MCHC 31.4 g/dl (32.3-36.5); MEAN CELL VOLUME 91.3 fl (79.0-92.2); MEAN PLT VOLUME 10.9 fl (9.4-12.4); RDW 13.3 % (12.2-16.4)
[2025-04-05 11:01] LABS: GLUCOSE,RANDOM 232 mg/dL (74-106)
[2025-04-05 11:02] LABS: TOT PROT 6.7 g/dl (6.4-8.2)
[2025-04-05 11:03] LABS: CO2 26 mmol/L (21-32)
[2025-04-05 11:04] LABS: ALK PHOS 64 U/L (40-150)
[2025-04-05 11:07] LABS: CREATININE 0.66 mg/dL (0.55-1.3); SGOT/AST 16 U/L (5-34); SGPT/ALT 14 U/L (0-55)
[2025-04-05 11:21] LABS: HCV DIAGNOSTIC IN-HOUSE W/RFLX NON-REACTIVE (NONREACTIVE)
[2025-04-05 11:22] LABS: SYPHILIS W/ RPR CONF NON-REACTIVE (NONREACTIVE)
[2025-04-05] MEDS: IBUPROFEN 600 MG TABLET (FP) PO PRN (22:04)
[2025-04-09] MEDS: LIDOCAINE 5% TOPICAL PATCH TP SCH (15:49)
[2025-04-09] MEDS: NALTREXONE HCL 50 MG TABLET PO ONE (17:24)
[2025-04-09] MEDS: LIDOCAINE PATCH REMOVAL MC SCH (21:17)
[2025-04-09] MEDS: BACLOFEN 10 MG TABLET (FP) PO SCH (21:18)
[2025-04-10] MEDS: NALTREXONE HCL 50 MG TABLET PO SCH (10:02)
[2025-04-10 20:46] VITALS: RESP 18
[2025-04-11 07:06] VITALS: BP 121/78; PULSE 91; TEMP 97
== END 2025-04-11 07:32 | disposition home or self-care (01) | DRG 895 ==
LOC: YASAS 10:55 → Y5N 15:51 → Y3NR 16:26 → Y3E 04-06 09:43
PROVIDERS: ADMIT Allergy & Immunology; ATTEND Psychiatry & Neurology Pain Medicine
PROC: HZ42ZZZ Group Counseling for Substance Abuse Treatment, Cognitive-Behavioral (ICD-10-PCS; principal; 2025-04-04)
DX: F14.20 Cocaine dependence, uncomplicated (principal); F10.20 Alcohol dependence, uncomplicated; N40.0 Benign prostatic hyperplasia without lower urinary tract symptoms; E11.9 Type 2 diabetes mellitus without complications; E78.5 Hyperlipidemia, unspecified; M25.569 Pain in unspecified knee; I11.0 Hypertensive heart disease with heart failure; I50.9 Heart failure, unspecified; F41.8 Other specified anxiety disorders; F31.9 Bipolar disorder, unspecified
CPT/HCPCS: 36415; 80053; 80305; 80307; 81003; 82962; 85027; 86780; 86803; 87811; 93005; 93010; J0475